=== PATIENT | female | born 2000 | race Caucasian/White ===

== ENCOUNTER 2021-12-05 06:32 | Emergency (ER) | payer MEDICAID ==
[~2021-12-05] VITALS: Ht 167.6 cm; Wt 64.0 kg
[2021-12-05 06:39] VITALS: BP 140/100
[2021-12-05] MEDS ORDERED: KETOROLAC 60MG/2ML VIAL IM ONE (07:00)
[2021-12-05] MEDS ORDERED: METOCLOPRAMIDE HCL 10MG TABLET PO ONE (07:00)
== END 2021-12-05 11:44 | disposition home or self-care (01) ==
LOC: ER 06:32
DX: R51.9 Headache, unspecified (principal); E11.9 Type 2 diabetes mellitus without complications
CPT/HCPCS: 99281

== ENCOUNTER 2023-09-12 17:57 | Emergency (ER) | payer OTHER, MEDICAID ==
[~2023-09-12] VITALS: Ht 157.5 cm; Wt 50.0 kg
[2023-09-12 18:02] VITALS: BP 121/71; PULSE 80; RESP 18; TEMP 98.7; O2SAT 99
[2023-09-12] MEDS ORDERED: IBUPROFEN 400MG TABLET PO ONE (20:45)
[2023-09-12] MEDS ORDERED: IBUP-2028 MT (21:25)
== END 2023-09-12 21:33 | disposition home or self-care (01) ==
LOC: ER 17:57
DX: S20.229A Contusion of unspecified back wall of thorax, initial encounter (principal); E11.9 Type 2 diabetes mellitus without complications; V49.49XA Driver injured in collision with other motor vehicles in traffic accident, initial encounter; Y93.89 Activity, other specified; Y92.89 Other specified places as the place of occurrence of the external cause; Y99.8 Other external cause status
CPT/HCPCS: 71046; 81025; 99283